=== PATIENT | female | born 1995 ===

== ENCOUNTER 2017-03-05 19:01 | Emergency (ER) | payer SELFPAY ==
[2017-03-05 19:26] VITALS: O2SAT 98
[2017-03-05] MEDS ORDERED: Sodium Chloride 0.9% 1,000 ML IV ONE (19:28)
--- NOTE | 2017-03-05 19:40 | C.PDOC ---
History Of Present Illness 21 year old female with no prior Hx who presents to the ER with a complaint of abdominal pain, nausea, and vomiting for a few days; however, she states she "always has abdominal pain". Patient reports having blood tinged emesis x 1 ; denies fever, blood in stool, or diarrhea. Time Seen by Provider: 03/05/17 19:20 Chief Complaint (Nursing): Abdominal Pain History Per: Patient History/Exam Limitations: no limitations Onset/Duration Of Symptoms: Days Current Symptoms Are (Timing): Still Present Location Of Pain/Discomfort: Epigastric Radiation Of Pain To:: None Quality Of Discomfort: Unable To Describe Associated Symptoms: Nausea, Vomiting. denies: Fever, Diarrhea Exacerbating Factors: None Alleviating Factors: None Recent travel outside of the [place]: No Abnormal Vaginal Bleeding: No Past Medical History Reviewed: Historical Data, Nursing Documentation, Vital Signs Vital Signs: Last Vital Signs Temp 97.9 F 03/05/17 20:42 Pulse 89 03/05/17 20:42 Resp 16 03/05/17 20:42 BP 105/71 03/05/17 20:42 Pulse Ox 98 03/05/17 22:22 - Medical History PMH: No Chronic Diseases Surgical History: No Surg Hx Family History: States: Unknown Family Hx - Social History Hx Alcohol Use: No Hx Substance Use: No - Immunization History Hx Tetanus Toxoid Vaccination: (unk) Hx Influenza Vaccination: No Hx Pneumococcal Vaccination: (unk) Review Of Systems Except As Marked, All Systems Reviewed And Found Negative. Constitutional: Negative for: Fever Gastrointestinal: Positive for: Nausea, Vomiting, Abdominal Pain, Hematemesis. Negative for: Diarrhea, Melena, Hematochezia Physical Exam - Physical Exam Appears: Non-toxic Skin: Normal Color, Warm, Dry Head: Atraumatic, Normacephalic Oral Mucosa: Moist Throat: Normal, No Erythema Chest: Symmetrical, No Tenderness Cardiovascular: Rhythm Regular, No Murmur Respiratory: Normal Breath Sounds, No Rales, No Rhonchi, No Wheezing Gastrointestinal/Abdominal: Soft, Tenderness (Minimal epigastric) Neurological/Psych: Oriented x3, Normal Speech, Normal Cognition Additional Physical Exam Comments: Patient refuses rectal examine. ED Course And Treatment - Laboratory Results Result Diagrams: 03/05/17 20:00 03/05/17 20:00 O2 Sat by Pulse Oximetry: 98 (Room air) Pulse Ox Interpretation: Normal Medical Decision Making Medical Decision Making: suspect gastritis/pud- pt with picture of blood- minimal noted in toilet bowl. pt refuses guaic. intial triage with tachycardia, however on inital exam, pt not tachycardic. Impression: 21 year old female with abdominal pain. suspect moisés garay vs gastritis, vs pud. pt with photo that shows trace blood in emesis. refuess guaic. Plan: * Blood work and * Urinalysis * Zofran, * Protonix * IV fluids * 830: abd soft no ttp, pt on phone in nad. bun/cr normal. h/h stable. tachycardia resolved. pt states she wishes to go home.a dvise outpt f/u and return precautions. pt well appearing, smiling in nad. Disposition - Disposition Referrals: Cody Hooper MD [Staff Provider] - [facility] at [facility] [Outside] [facility] [Outside] Disposition: HOME/ ROUTINE Disposition Time: 20:29 Condition: STABLE Additional Instructions: please follow up with specialist. return to er with worsening symptoms or concerns. Prescriptions: Pantoprazole Sodium [Protonix] 40 mg PO DAILY #20 ect Instructions: Gastrointestinal Bleeding (ED), Acute Abdominal Pain (ED) - Clinical Impression Clinical Impression: Abdominal pain - Scribe Statement The provider has reviewed the documentation as recorded by the [employer] All medical record entries made by the Scribe were at my direction and personally dictated by me. I have reviewed the chart and agree that the record accurately reflects my personal performance of the history, physical exam, medical decision making, and the department course for this patient. I have also personally directed, reviewed, and agree with the discharge instructions and disposition.
[2017-03-05 19:41] LABS: HCG,QUALITATIVE URINE NEGATIVE (NEGATIVE)
[2017-03-05 19:46] LABS: SQUAMOUS EPITHIAL 3 /hpf (0-5); URINE BACTERIA FEW (<OCC); URINE BILIRUBIN NEGATIVE (NEGATIVE); URINE BLOOD 1+ (NEGATIVE); URINE CLARITY Hazy (Clear); URINE COLOR Yellow (YELLOW); URINE GLUCOSE (UA) NORMAL (Normal); URINE HYALINE CAST 0-2 /lpf (0-2); URINE LEUKOCYTE ESTERASE NEG Leu/uL (Negative); URINE NITRATE NEGATIVE (NEGATIVE); URINE PROTEIN 1+ mg/dL (NEGATIVE); URINE UROBILINOGEN NORMAL mg/dL (0.2-1.0)
[2017-03-05] MEDS ORDERED: Sodium Chloride 0.9% 1,000 ML ONE (20:03)
[2017-03-05 20:11] LABS: BASO % 0.2 % (0.0-2.0); EOS % 0.2 % (0.0-4.0); HEMOGLOBIN 12.7 g/dL (11.0-16.0); LYMPH # 1.5 K/uL (1.0-4.3); LYMPH % 16.8 % (20.0-40.0); MEAN CELL VOLUME 81.7 fL (81.0-99.0); MEAN CORPUSCULAR HEMOGLOBIN 26.3 pg (27.0-31.0); MEAN CORPUSCULAR HGB CONC 32.2 g/dL (33.0-37.0); MEAN PLATELET VOLUME 8.7 fL (7.2-11.7); MONO # 0.8 K/uL (0.0-0.8); MONO % 8.8 % (0.0-10.0); NEUT # 6.6 K/uL (1.8-7.0); RBC 4.83 Mil/uL (3.80-5.20); RED CELL DISTRIBUTION WIDTH 15.2 % (11.5-14.5)
[2017-03-05 20:14] LABS: ALBUMIN 4.1 g/dL (3.5-5.0)
[2017-03-05 20:16] LABS: GFR AFRICAN-AMERICAN > 60; GFR NON-AFRICAN AMERICAN > 60
[2017-03-05 20:17] LABS: ALB/GLOB RATIO 1.3 (1.0-2.1); ALT/SGPT 37 U/L (9-52); AST/SGOT 23 U/L (14-36); BLOOD UREA NITROGEN 11 mg/dL (7-17); CALCIUM 9.1 mg/dl (8.6-10.4); LIPASE 37 U/L (23-300)
[2017-03-05 20:19] LABS: INR 1.2; PROTHROMBIN TIME 12.9 SECONDS (9.7-12.2)
[2017-03-05 20:43] VITALS: BP 105/71; PULSE 89; RESP 16; TEMP 97.9
== END 2017-03-05 20:44 | disposition home or self-care (01) ==
LOC: C.ER 19:01
DX: R10.13 Epigastric pain (principal)
CPT/HCPCS: 80053; 81001; 83690; 84703; 85025; 85610; 85730; 86850; 86900; 96361; 96374; 96375; 99284; C9113; J2405; J7040